=== PATIENT | male | born 2000 | race Caucasian/White ===

== ENCOUNTER 2020-09-29 22:10 | Emergency (ER) | payer BC, OTHER ==
[~2020-09-29 22:10] MED LIST: DELSYM30 MG/5 ML PO; FLONASE 0.05% N16 GM; IBUPROFEN600 MG PO; PREDNISONE 50 M50 MG PO
[2020-09-29] MEDS ORDERED: BACTRIM DS TAB1 EACH PO (22:29)
== END 2020-09-29 22:30 | disposition home or self-care (01) ==
LOC: ER1 22:10
DX: L02.415 Cutaneous abscess of right lower limb (principal); F17.200 Nicotine dependence, unspecified, uncomplicated
CPT/HCPCS: 99282

== ENCOUNTER 2020-10-07 23:03 | Emergency (ER) | payer BC, OTHER ==
[~2020-10-07 23:03] MED LIST changes: +BACTRIM DS TAB1 EACH PO
[2020-10-08] MEDS ORDERED: PENVEE K 500 M500 MG PO (02:56)
[2020-10-08] MEDS ORDERED: LODINE CAP 300300 MG PO (02:56)
== END 2020-10-08 03:00 | disposition home or self-care (01) ==
LOC: ER1 23:03
DX: K02.9 Dental caries, unspecified (principal); F17.210 Nicotine dependence, cigarettes, uncomplicated
CPT/HCPCS: 99282

== ENCOUNTER 2022-06-12 10:22 | Emergency (ER) | payer OTHER ==
[~2022-06-12 10:22] MED LIST changes: +LODINE CAP 300300 MG PO; +PENVEE K 500 M500 MG PO
== END 2022-06-12 11:38 | disposition home or self-care (01) ==
LOC: ER1 10:22
DX: J06.9 Acute upper respiratory infection, unspecified (principal); Z20.822 Contact with and (suspected) exposure to COVID-19; F17.210 Nicotine dependence, cigarettes, uncomplicated
CPT/HCPCS: 99284; U0002